=== PATIENT | female | born 1965 | race Caucasian/White ===

== ENCOUNTER 2017-10-16 15:26 | Inpatient (IN) | payer OTHER ==
[~2017-10-16] VITALS: Ht 157.5 cm; Wt 116.1 kg
[2017-10-16] MEDS: ALBUTEROL SULF 0.083% NEB SOLN 3 ML NEB NEB SCH ×2 (00:45→19:55)
--- OUTSIDE RECORDS SUMMARY | 2017-10-16 15:29 | XMS REPORT ---
Author Author [facility] Address Unknown Phone Unavailable Care Team Providers Care Product Manager [employer] Name Role Phone YRN PARKS Unavailable Unavailable Problems This patient has no known problems. Allergies, Adverse Reactions, Alerts This patient has no known allergies or adverse reactions. Medications This patient has no known medications. Results Test Description Test Time Test Comments Text Results Atomic Results Result Comments MAMMOGRAPHY DIGITAL SCR BILAT [place] [address] Patient Name: RA KELSEY MR #: [id number] : 1965 Age/Sex: 51/F Req #: [id number] [facility] Physician: Ordered by: YRN PARKS MD Report #: [id number] Location: MAMMO Room/Bed: Procedure: [id number] MG/MAMMOGRAPHY DIGITAL SCR BILAT Exam Date: 05/21/17 Exam Time: 1705 REPORT STATUS: Signed # [id number] - MGSCRBIL #BILATERAL DIGITAL SCREENING MAMMOGRAM WITH CAD: CLINICAL: Routine screening. Comparison is made to exam dated: 05/18/2015 mammogram - [facility]. Current study contains 4 films. There are scattered fibroglandular elements in both breasts. Current study was also evaluated with a Computer Aided Detection ( CAD) system. There are benign calcifications in both breasts. There also is a benign asymmetric density in the left breast noted on the CC view that appears stable. No significant masses, calcifications, or other findings are seen in either breast. There has been no significant interval change. IMPRESSION: BENIGN There is no mammographic evidence of malignancy. A 1 year screening mammogram is recommended. The patient will be notified by letter of the results. Sanjiv Shahid Jr., D.O. cw/:2016 12:46:29 Synthetic Resin Operator: Helga RAY)(Kendy), [facility] letter sent: Compared to Prior B9 Mammogram BI- RADS: 2 Benign Dictated By: SANJIV SHAHID DO 1246 Transcribed By: KENROY on 05/25/17 1246 COPY TO: YRN PARKS MD
[2017-10-16] MEDS ORDERED: SODIUM CHLORIDE 0.9% 1000ML 1,000 ML IV STA (15:38)
[2017-10-16] MEDS ORDERED: METHYLPREDNISOLONE SOD SUCC 125 MG/2ML VIAL IV STA (15:38)
[2017-10-16] MEDS ORDERED: DIPHENHYDRAMINE HCL INJ 50 MG/ML VIAL IV ONE (15:45)
[2017-10-16 15:59] LABS: BASOPHILS # (AUTO) 0.1 (0.0-0.1); BASOPHILS % 0.7 % (0.0-1.0); EOSINOPHILS # (AUTO) 0.5 (0.0-0.4); EOSINOPHILS % 2.6 % (0.0-6.0); HEMATOCRIT 34.6 % (34.2-44.1); HEMOGLOBIN 11.2 g/dL (12.0-16.0); LYMPHOCYTES # (AUTO) 4.1 (1.0-3.2); LYMPHOCYTES % 23.1 % (18.0-39.1); MEAN CORPUSCULAR HEMOGLOBIN 28.6 pg (28-32); MEAN CORPUSCULAR HGB CONC 32.4 g/dL (31-35); MEAN CORPUSCULAR VOLUME 88.3 fL (81-99); MONOCYTES # (AUTO) 1.1 (0.2-0.8); MONOCYTES % 6.4 % (4.4-11.3); NEUTROPHILS # (AUTO) 11.9 (2.1-6.9); NEUTROPHILS % 66.6 % (38.7-80.0); PLATELET COUNT 494 x10e3/uL (140-360); RED BLOOD COUNT 3.92 x10e6/uL (3.6-5.1)
[2017-10-16 16:07] LABS: PARTIAL THROMBOPLASTIN TIME 26.3 seconds (23.8-35.5); PROTHROMBIN TIME 12.4 seconds (11.9-14.5)
[2017-10-16 16:14] LABS: ALANINE AMINOTRANSFERASE 18 IU/L (0-55); ALBUMIN 3.7 g/dL (3.5-5.0); ALBUMIN/GLOBULIN RATIO 0.9 (0.8-2.0); ALKALINE PHOSPHATASE 107 IU/L (40-150); ANION GAP 15.7 mmol/L (8-16); BLOOD UREA NITROGEN 10 mg/dL (7-26); BUN/CREATININE RATIO 14 (6-25); CALCIUM 9.8 mg/dL (8.4-10.2); CARBON DIOXIDE 27 mmol/L (22-29); CHLORIDE 100 mmol/L (98-107); CREATINE KINASE 59 IU/L (29-168); CREATININE, SERUM 0.72 mg/dL (0.57-1.11); EST GLOMERULAR FILTRATION RATE > 60 ML/MIN (60-); GLUCOSE 153 mg/dL (74-118); POTASSIUM 3.7 mmol/L (3.5-5.1); SODIUM 139 mmol/L (136-145)
[2017-10-16 16:55] LABS: BILIRUBIN,URINE NEGATIVE (NEGATIVE); CLARITY,URINE CLEAR (CLEAR); COLOR,URINE YELLOW (YELLOW); KETONES,URINE NEGATIVE (NEGATIVE); LEUKOCYTE ESTERASE ,URINE NEGATIVE (NEGATIVE); NITRITE,URINE NEGATIVE (NEGATIVE); PROTEIN,URINE DIPSTICK NEGATIVE (NEGATIVE); URINE UROBILINOGEN 0.2 mg/dL (0.2 - 1)
--- NOTE | 2017-10-16 17:07 | Diagnostic Imaging Report ---
EXAMINATION: CHEST 2 VIEWS INDICATION: \S\HEMPOTYSIS \S.br\ COMPARISON: None FINDINGS: PA and lateral views TUBES and LINES: None. LUNGS: Lungs are well inflated. Right middle lobe opacification. PLEURA: No pleural effusion or pneumothorax. HEART AND MEDIASTINUM: The cardiomediastinal silhouette is unremarkable. BONES AND SOFT TISSUES: No acute osseous lesion. Soft tissues are unremarkable. UPPER ABDOMEN: No free air under the diaphragm. IMPRESSION: Lateral right middle lobe opacification, concerning for pneumonia. Signed by: Dr. Home Ferrell MD on 10/16/2017 5:03 PM
[2017-10-16] MEDS ORDERED: CEFTRIAXONE SOD 1 GM VIAL IV ONE (17:30)
[2017-10-16] MEDS ORDERED: GLIMEPIRIDE2 MG PO (18:15)
[2017-10-16] MEDS ORDERED: DETROL LA4 MG PO (18:15)
[2017-10-16] MEDS ORDERED: METFORMIN HCL500 MG PO (18:15)
[2017-10-16] MEDS ORDERED: VENTOLIN HFA18 GM (18:15)
[2017-10-16] MEDS ORDERED: SERTRALINE HCL50 MG PO (18:15)
[2017-10-16] MEDS ORDERED: ACETAMINOPHEN 325 MG TAB PO PRN (18:15)
[2017-10-16] MEDS ORDERED: LISINOPRIL10 MG PO (18:15)
[2017-10-16] MEDS ORDERED: TRAZODONE HCL50 MG PO (18:15)
[2017-10-16] MEDS ORDERED: DEXTROSE 50% SYRINGE 50 ML IV PRN (18:15)
[2017-10-16] MEDS ORDERED: LIPITOR20 MG (18:15)
[2017-10-16] MEDS ORDERED: AZITHROMYCIN 500MG/SOD CHL 0.9% 250ML BAG IV SCH (18:30)
[2017-10-16] MEDS: NICOTINE 7 MG PATCH TOP SCH (18:57)
[2017-10-16] MEDS: SODIUM CHLORIDE 0.9% 1000ML 1,000 ML IV SCH ×2 (18:57→22:30)
[2017-10-16] MEDS: AZITHROMYCIN 500MG/NS 250 ML 250 ML IV SCH (18:57)
[2017-10-16] MEDS ORDERED: AZITHROMYCIN 500MG/NS 250 ML 250 ML IV ONE (19:00)
[2017-10-16] MEDS: ALBUTEROL/IPRATROPIUM 3 ML NEB NEB SCH (19:55)
[2017-10-16 20:15] VITALS: BP 155/77
[2017-10-16] MEDS: INSULIN LISPRO 100 UNIT/1 ML 3ML VIAL SQ SCH (21:00)
[2017-10-16] MEDS: ATORVASTATIN 20 MG TAB PO SCH (21:03)
[2017-10-16] MEDS: TRAZODONE HCL 50 MG TAB PO SCH (21:03)
--- NOTE | 2017-10-16 22:33 | History and Physical ---
CHIEF COMPLAINT 1. Cough. 2. Shortness of breath. 3. Weakness starting 2 days. HPI: This is a 51-year-old female with a past medical history of hypertension, nicotine dependency, hyperlipidemia, diabetes mellitus, mild COPD, was in his usual state of health until patient was sick last 2 to 3 days. Was coughing mucus with blood in the mucus this morning. Increase in shortness of breath, fatigue and weakness. No leg pain, no leg swelling. No abdominal pain. No nausea or vomiting. No hematemesis, no melena. No burning on urination. No backache. No seizures. No headache. PAST MEDICAL HISTORY 1. Diabetes mellitus type 2. 2. Hypertension. 3. Hyperlipidemia. 4. Nicotine dependency. PAST SURGICAL HISTORY 1. History of hysterectomy. 2. Appendectomy. 3. Right hand surgery. SOCIAL HISTORY: Patient is , lives with family. Smoking cigarette, cut down a lot, only 5 cigarettes per day now. Used to smoke 1 pack of cigarette daily. Occasional alcohol use. No illicit drug use. FAMILY HISTORY: Noncontributory. ALLERGIES: ALLERGY TO SHELLFISH. MEDICATION LIST: Attached. REVIEW OF SYSTEMS: GENERAL: Generalized fatigue and weakness. HEENT: No diplopia. No blurring of vision. CARDIOPULMONARY: No chest pain, but has shortness of breath, cough, and hemoptysis. ALIMENTARY SYSTEM: No nausea or vomiting. No diarrhea or constipation. GENITOURINARY SYSTEM: No dysuria or hematuria. MUSCULOSKELETAL SYSTEM: Has some joint pain. CENTRAL NERVOUS SYSTEM: No focal weakness. No seizures. PHYSICAL EXAMINATION GENERAL: A 51-year-old female who is alert and oriented times 3, mild respiratory distress. VITAL SIGNS: Temperature 98.3, pulse 98, respiratory rate 20, and blood pressure 141/63. HEENT: Head atraumatic, normocephalic. Pupils are bilaterally equal and reactive to light. Extraocular muscles intact. NECK: Supple. No JVD, no carotid bruit. LUNGS: Air entry fair. Decreased breath sounds on the right side. HEART: S1 and S2. Regular rate and rhythm. No S3, no S4. No murmur. ABDOMEN: Soft and nontender. No guarding. No rigidity. EXTREMITIES: No pedal edema. Peripheral pulses +1. ELECTRIC RANGE SERVICER: Grossly nonfocal. Chest x-ray shows right middle lobe infiltrate. Urine normal. Chemistry: Sugar 153. BNP normal. Cardiac enzymes normal. normal. CBC: White count 17.79, hemoglobin 112, hematocrit 34.6, and platelets 494,000. ASSESSMENT 1. Right lower lobe pneumonia. 2. Rule out chronic obstructive pulmonary disease. 3. History of smoking cigarette, on Chantix. 4. Hypertension. 5. Diabetes mellitus type 2. 6. Hyperlipidemia. PLAN 1. Admit to telemetry. 2. Neb treatment, DuoNeb q.6 h. 3. IV Rocephin 2 g daily. 4. IV Zithromax 500 IV daily. 5. Continue home medicines. 6. Blood sugar checkup a.c. and nightly. 7. Pulmonary consult, Dr. Coronado. Case discussed with daughter, family, and patient. Told condition and prognosis, explained plan of care. Job#: [id number]
[2017-10-17] VITALS (7 sets, daily range): BP systolic 112–155; BP diastolic 59–77
[2017-10-17] MEDS: ALBUTEROL/IPRATROPIUM 3 ML NEB NEB SCH ×4 (00:45→19:00)
[2017-10-17] MEDS: IPRATROPIUM BROMIDE 0.02% 2.5 ML NEB NEB SCH ×5 (01:00→23:30)
[2017-10-17] MEDS: ALBUTEROL SULF 0.083% NEB SOLN 3 ML NEB NEB SCH ×6 (03:00→23:30)
[2017-10-17] MEDS: SODIUM CHLORIDE 0.9% 1000ML 1,000 ML IV SCH ×2 (06:06→19:00)
[2017-10-17] MEDS: PANTOPRAZOLE SOD 40 MG TABEC PO SCH (07:30)
[2017-10-17] MEDS: INSULIN LISPRO 100 UNIT/1 ML 3ML VIAL SQ SCH ×4 (07:30→21:41)
[2017-10-17] MEDS: METFORMIN HCL 500 MG TAB PO SCH ×2 (08:00→17:00)
[2017-10-17] MEDS: GLIMEPIRIDE 2 MG TAB PO SCH ×2 (08:00→17:00)
[2017-10-17 08:15] LABS: BASOPHILS % 0.3 % (0.0-1.0); EOSINOPHILS % 0.1 % (0.0-6.0); HEMOGLOBIN 10.3 g/dL (12.0-16.0); LYMPHOCYTES # (AUTO) 2.2 (1.0-3.2); LYMPHOCYTES % 13.9 % (18.0-39.1); MEAN CORPUSCULAR HEMOGLOBIN 28.5 pg (28-32); MEAN CORPUSCULAR HGB CONC 32.2 g/dL (31-35); MEAN CORPUSCULAR VOLUME 88.6 fL (81-99); MONOCYTES % 6.1 % (4.4-11.3); NEUTROPHILS # (AUTO) 12.5 (2.1-6.9); NEUTROPHILS % 78.7 % (38.7-80.0); PLATELET COUNT 426 x10e3/uL (140-360); RED BLOOD COUNT 3.61 x10e6/uL (3.6-5.1)
[2017-10-17 08:33] LABS: ANION GAP 15.9 mmol/L (8-16); BLOOD UREA NITROGEN 11 mg/dL (7-26); BUN/CREATININE RATIO 15 (6-25); CALCIUM 9.6 mg/dL (8.4-10.2); CARBON DIOXIDE 21 mmol/L (22-29); CHLORIDE 106 mmol/L (98-107); CREATININE, SERUM 0.75 mg/dL (0.57-1.11); EST GLOMERULAR FILTRATION RATE > 60 ML/MIN (60-); GLUCOSE 301 mg/dL (74-118); POTASSIUM 3.9 mmol/L (3.5-5.1); SODIUM 139 mmol/L (136-145)
[2017-10-17] MEDS: SERTRALINE HCL 50 MG TAB PO SCH (09:00)
[2017-10-17] MEDS: LISINOPRIL 20 MG TAB PO SCH (09:00)
[2017-10-17] MEDS: CEFTRIAXONE SOD 1 GM VIAL IV SCH (09:00)
[2017-10-17] MEDS: TOLTERODINE TARTRATE 4 MG CAPCR PO SCH (09:00)
--- NOTE | 2017-10-17 14:41 | Diagnostic Imaging Report ---
EXAM: CT Chest WITHOUT contrast 10/17/2017 1:30 PM INDICATION: Dyspnea. Right lower lobe pneumonia. COMPARISON: None. Correlation with chest radiograph dated 10/16/2017. TECHNIQUE: Chest was scanned utilizing a multidetector helical scanner from the lung apex through the level of the adrenal glands without administration of IV contrast. Absence of intravenous contrast decreases sensitivity for detection of lymphadenopathy and vascular pathology. Coronal and sagittal reformations were obtained. Routine protocol was performed. IV CONTRAST: None RADIATION DOSE: Total DLP: 563.77 mGy*cm Estimated effective dose: (DLP x 0.014 x size factor) mSv COMPLICATIONS: None FINDINGS: LINES/ TUBES: None. LUNGS AND AIRWAYS: Right middle lobe consolidation with air bronchograms. 1.0 cm noncalcified nodule in the right middle lobe medial to the consolidation on image 31. Lingular subsegmental atelectasis. Mild patchy groundglass density in the left lower lobe anteriorly on image 19, in the left upper lobe medially on image 15, and right apex anteriorly on image 8 series 3. Patchy groundglass density in the right lower lobe on image 37 series 3. Minimal biapical emphysematous changes. PLEURA: The pleural spaces are clear. HEART AND MEDIASTINUM: The thyroid gland is normal. No mediastinal, hilar or axillary lymphadenopathy. The heart is normal in size.. There is no pericardial effusion. Atherosclerotic calcifications of the thoracic aorta without aneurysmal dilatation. Calcification of distal LAD. UPPER ABDOMEN: Limited non-contrast views of the upper abdomen show hepatic steatosis.. The adrenal glands are normal. BONES: No acute osseous abnormality. SOFT TISSUES: Unremarkable. IMPRESSION: 1. Right middle lobe consolidation may be infectious in etiology in the proper setting. Recommend follow-up after treatment to document complete resolution and exclude post obstructive pneumonia and underlying neoplasm (a rounded abnormality was present on CXR from 05/2015). Given hemoptysis, consider pulmonary consultation for possible bronchoscopic evaluation. 2. 1.0 cm right middle lobe nodule in the also be reevaluated at time of future follow up. Signed by: Dr. Sanam Gaines M.D. on 10/17/2017 2:38 PM
--- NOTE | 2017-10-17 16:14 | Consultation ---
DATE OF CONSULTATION: October 17, 2017 PULMONARY CONSULTATION PATIENT OF: Dr. Olegario Raymond. HISTORY OF PRESENT ILLNESS: Unfortunate 51-year-old woman admitted with shortness of breath, cough, and fatigue. History of blood sputum in August and again this current illness. She was short of breath the morning of October 16 and was admitted. She is allergic to SHELLFISH. She is diabetic and hypertensive. Her medications include albuterol, Lipitor, Gena, lisinopril, metformin, Zoloft, Detrol, and trazodone. She has had appendectomy, hysterectomy, and hand surgery. Works in a clerical position. Smoked a pack and a half a day for 30 years, quit with Chantix. FAMILY HISTORY: Positive for COPD and throat cancer in father. Diabetes and hypertension in mother. She was born in [place]. PHYSICAL EXAMINATION GENERAL: This is a well-developed white female, in no acute distress, anxious. VITALS: Temperature 96.8, pulse 89, blood pressure 112/70, and respirations 18. HEENT: There is bloody sputum. Head is normocephalic, atraumatic. NECK: Trachea is midline. LUNGS: Rhonchi right anteriorly. HEART: Regular rhythm. ABDOMEN: Nontender. EXTREMITIES: Not edematous. IMPRESSION AND RECOMMENDATIONS: Right middle lobe pneumonia, suspicious for bronchial obstruction, particularly in view of hemoptysis and smoking history. We will request CT chest and bronchoscopy. It was discussed with the patient. She will consider this. Cigarette smoking cessation was discussed. Thank you for this kind referral. Job#: [id number] MICHAEL
[2017-10-17] MEDS ORDERED: CEFTRIAXONE SOD 1 GM VIAL IV SCH (18:00)
[2017-10-17] MEDS: NICOTINE 7 MG PATCH TOP SCH (18:06)
[2017-10-17] MEDS: AZITHROMYCIN 500MG/NS 250 ML 250 ML IV SCH (20:00)
[2017-10-17] MEDS: ATORVASTATIN 20 MG TAB PO SCH (21:41)
[2017-10-17] MEDS: TRAZODONE HCL 50 MG TAB PO SCH (21:41)
[2017-10-18] VITALS (8 sets, daily range): BP systolic 124–161; BP diastolic 69–80
[2017-10-18] MEDS: ALBUTEROL/IPRATROPIUM 3 ML NEB NEB SCH ×2 (01:00→13:00)
[2017-10-18] MEDS: ALBUTEROL SULF 0.083% NEB SOLN 3 ML NEB NEB SCH ×2 (03:45→07:00)
[2017-10-18 06:06] LABS: BASOPHILS # (AUTO) 0.1 (0.0-0.1); BASOPHILS % 0.4 % (0.0-1.0); EOSINOPHILS # (AUTO) 0.4 (0.0-0.4); EOSINOPHILS % 3.5 % (0.0-6.0); HEMATOCRIT 30.1 % (34.2-44.1); HEMOGLOBIN 9.6 g/dL (12.0-16.0); LYMPHOCYTES % 24.7 % (18.0-39.1); MEAN CORPUSCULAR HEMOGLOBIN 28.3 pg (28-32); MEAN CORPUSCULAR HGB CONC 31.9 g/dL (31-35); MEAN CORPUSCULAR VOLUME 88.8 fL (81-99); MONOCYTES # (AUTO) 0.8 (0.2-0.8); MONOCYTES % 6.6 % (4.4-11.3); NEUTROPHILS # (AUTO) 7.8 (2.1-6.9); NEUTROPHILS % 64.3 % (38.7-80.0); PLATELET COUNT 382 x10e3/uL (140-360); RED BLOOD COUNT 3.39 x10e6/uL (3.6-5.1); RED CELL DISTRIBUTION WIDTH 13.2 % (11.7-14.4)
[2017-10-18 06:25] LABS: ANION GAP 11.8 mmol/L (8-16); BLOOD UREA NITROGEN 9 mg/dL (7-26); BUN/CREATININE RATIO 13 (6-25); CALCIUM 8.2 mg/dL (8.4-10.2); CARBON DIOXIDE 24 mmol/L (22-29); CHLORIDE 111 mmol/L (98-107); CREATININE, SERUM 0.68 mg/dL (0.57-1.11); EST GLOMERULAR FILTRATION RATE > 60 ML/MIN (60-); GLUCOSE 217 mg/dL (74-118); POTASSIUM 3.8 mmol/L (3.5-5.1); SODIUM 143 mmol/L (136-145)
[2017-10-18] MEDS: IPRATROPIUM BROMIDE 0.02% 2.5 ML NEB NEB SCH (07:00)
[2017-10-18] MEDS: PANTOPRAZOLE SOD 40 MG TABEC PO SCH (08:23)
[2017-10-18] MEDS: INSULIN LISPRO 100 UNIT/1 ML 3ML VIAL SQ SCH ×4 (08:23→21:11)
[2017-10-18] MEDS: TOLTERODINE TARTRATE 4 MG CAPCR PO SCH (08:23)
[2017-10-18] MEDS: GLIMEPIRIDE 2 MG TAB PO SCH ×2 (08:23→16:06)
[2017-10-18] MEDS: METFORMIN HCL 500 MG TAB PO SCH (08:23)
[2017-10-18] MEDS: CEFTRIAXONE SOD 1 GM VIAL IV SCH (08:23)
[2017-10-18] MEDS: SERTRALINE HCL 50 MG TAB PO SCH (08:24)
[2017-10-18] MEDS: LISINOPRIL 20 MG TAB PO SCH (08:24)
[2017-10-18] MEDS: SODIUM CHLORIDE 0.9% 1000ML 1,000 ML IV SCH (11:56)
[2017-10-18] MEDS: NICOTINE 7 MG PATCH TOP SCH (16:06)
[2017-10-18] MEDS: AZITHROMYCIN 500MG/NS 250 ML 250 ML IV SCH (20:32)
[2017-10-18] MEDS: ATORVASTATIN 20 MG TAB PO SCH (20:36)
[2017-10-18] MEDS ORDERED: LOPERAMIDE HCL 2 MG CAP PO PRN (20:45)
[2017-10-18] MEDS ORDERED: ALBUTEROL/IPRATROPIUM 3 ML NEB NEB PRN (21:00)
[2017-10-18] MEDS: TRAZODONE HCL 50 MG TAB PO SCH (21:08)
[2017-10-19] VITALS (7 sets, daily range): BP systolic 105–143; BP diastolic 56–92
[2017-10-19] MEDS: SODIUM CHLORIDE 0.9% 1000ML 1,000 ML IV SCH ×2 (00:45→15:35)
[2017-10-19] MEDS: ALBUTEROL/IPRATROPIUM 3 ML NEB NEB SCH ×4 (01:02→20:05)
[2017-10-19 05:55] LABS: BASOPHILS # (AUTO) 0.1 (0.0-0.1); EOSINOPHILS # (AUTO) 0.5 (0.0-0.4); HEMATOCRIT 30.6 % (34.2-44.1); HEMOGLOBIN 9.6 g/dL (12.0-16.0); LYMPHOCYTES # (AUTO) 3.2 (1.0-3.2); LYMPHOCYTES % 30.5 % (18.0-39.1); MEAN CORPUSCULAR HEMOGLOBIN 28.4 pg (28-32); MEAN CORPUSCULAR HGB CONC 31.4 g/dL (31-35); MEAN CORPUSCULAR VOLUME 90.5 fL (81-99); MONOCYTES # (AUTO) 0.8 (0.2-0.8); MONOCYTES % 8.1 % (4.4-11.3); NEUTROPHILS # (AUTO) 5.7 (2.1-6.9); PLATELET COUNT 393 x10e3/uL (140-360); RED BLOOD COUNT 3.38 x10e6/uL (3.6-5.1); RED CELL DISTRIBUTION WIDTH 13.4 % (11.7-14.4); RETICULOCYTE % 1.5 % (0.8-2.2)
[2017-10-19 06:11] LABS: % IRON SATURATION 8 % (15-50); ALANINE AMINOTRANSFERASE 17 IU/L (0-55); ALBUMIN 2.8 g/dL (3.5-5.0); ALBUMIN/GLOBULIN RATIO 0.9 (0.8-2.0); ALKALINE PHOSPHATASE 80 IU/L (40-150); ANION GAP 11.8 mmol/L (8-16); BLOOD UREA NITROGEN 10 mg/dL (7-26); BUN/CREATININE RATIO 16 (6-25); CALCIUM 8.3 mg/dL (8.4-10.2); CARBON DIOXIDE 24 mmol/L (22-29); CHLORIDE 109 mmol/L (98-107); CREATININE, SERUM 0.63 mg/dL (0.57-1.11); EST GLOMERULAR FILTRATION RATE > 60 ML/MIN (60-); GLUCOSE 200 mg/dL (74-118); IRON 20 ug/dL (50-170); POTASSIUM 3.8 mmol/L (3.5-5.1); SODIUM 141 mmol/L (136-145); TOTAL IRON BINDING CAPACITY 251 ug/dL (261-478); TRANSFERRIN 179 mg/dL (180-382)
[2017-10-19 06:33] LABS: FERRITIN 97.04 ng/mL (4.63-204.00)
[2017-10-19] MEDS: PANTOPRAZOLE SOD 40 MG TABEC PO SCH (07:30)
[2017-10-19] MEDS: INSULIN LISPRO 100 UNIT/1 ML 3ML VIAL SQ SCH ×4 (07:30→20:50)
[2017-10-19] MEDS: GLIMEPIRIDE 2 MG TAB PO SCH ×2 (08:00→17:58)
[2017-10-19] MEDS: IRON-VITAMIN-MINERAL CAPSULE PO SCH (09:00)
[2017-10-19] MEDS: TOLTERODINE TARTRATE 4 MG CAPCR PO SCH (09:24)
[2017-10-19] MEDS: CEFTRIAXONE SOD 2 GM VIAL IV SCH (09:24)
[2017-10-19] MEDS: LISINOPRIL 20 MG TAB PO SCH (09:25)
--- NOTE | 2017-10-19 10:39 | Diagnostic Imaging Report ---
PROCEDURE:ABDOMINAL ULTRASOUND COMPARISON:None. INDICATIONS:Acute Anemia TECHNIQUE:Grayscale and color Doppler ultrasound FINDINGS: Imaged portions of the inferior vena cava and abdominal aorta are unremarkable. Normal pancreatic head and proximal body. The tail is obscured by bowel gas. Right liver span 18.6 cm. Coarsened echotexture and echogenicity with a smooth margin. Portal vein diameter 1.3 cm; normal flutter action. Small volume gallbladder sludge without calcified stones. Wall thickness 3 mm. Common bile duct diameter 4 mm. No Barry's sign. Right kidney: 13.5 x 5.4 x 6.6 cm Left kidney: 12.1 x 6 x 5.3 cm Both kidneys are normal. Spleen length is 9.7 cm. No ascites. CONCLUSION: 1. No conspicuous etiology for acute anemia. 2. Hepatomegaly with steatosis. Prominent portal vein suggesting developing portal hypertension. Dictated by: Gigi Gibbons M.D. on 10/19/2017 at 10:39 Electronically approved by: Gigi Gibbons M.D. on 10/19/2017 at 10:39
[2017-10-19] MEDS ORDERED: LIDOCAINE HCL 2% 30 ML TUBE ONE (12:49)
[2017-10-19] MEDS ORDERED: LIDOCAINE HCL 4% 50 ML BTL ONE (12:49)
[2017-10-19] MEDS ORDERED: OXYMETAZOLINE HCL 0.05% NAS 1 SPRAY BTL ONE (12:50)
[2017-10-19] MEDS ORDERED: EPINEPHRINE HCL INJ 1 MG/ML AMP ONE (12:50)
--- NOTE | 2017-10-19 14:28 | Operative Report ---
DATE OF PROCEDURE: October 19, 2017 This is a patient of Dr. Steven Raymond. Patient with hemoptysis and right middle lobe infiltrate. The patient has been bleeding on and off since August. She is a heavy smoker. Bronchoscopy was performed to exclude occult endobronchial lesion. MAC anesthesia provided by Dr. Herman. She was bronchoscoped through a #5 LMA. Tube was in good position. Old blood was noted at the posterior commissure of the larynx. This was suctioned clear. Copious amount of serosanguineous bloody fluid was noted bilaterally, but no particular bleeding point was encountered. Washings were obtained from the right middle lobe bronchus. Brushings were also obtained. The patient tolerated the procedure well. There was no obvious tumor. Following lavage, there was no evidence of bleeding. The patient was taken to the recovery area. Job#: [id number]
[2017-10-19] MEDS ORDERED: ACETAMINOPHEN 1000 MG/100 ML IV ONE (14:40)
[2017-10-19] MEDS ORDERED: MIDAZOLAM HCL 2 MG/2 ML VIAL ONE (17:48)
[2017-10-19] MEDS ORDERED: FENTANYL CITRATE/PF 100MCG/2 ML INJ ONE (17:48)
[2017-10-19] MEDS: NICOTINE 7 MG PATCH TOP SCH (17:58)
[2017-10-19] MEDS ORDERED: SEVOFLURANE INHAL SOLN 250 ML PEN BTL ONE (18:19)
[2017-10-19] MEDS ORDERED: LIDOCAINE HCL 2% LOCAL INJ 5 ML SDV VIAL INJ ONE (18:19)
[2017-10-19] MEDS ORDERED: PROPOFOL IV EMULSION 10 MG/ML 20 ML VIAL ONE (18:19)
[2017-10-19] MEDS ORDERED: ALBUTEROL/IPRATROPIUM 3 ML NEB NEB PRN (19:00)
[2017-10-19] MEDS: ATORVASTATIN 20 MG TAB PO SCH (20:50)
[2017-10-19] MEDS: AZITHROMYCIN 500MG/NS 250 ML 250 ML IV SCH (20:50)
[2017-10-19] MEDS: TRAZODONE HCL 50 MG TAB PO SCH (20:50)
[2017-10-19] MEDS: SERTRALINE HCL 50 MG TAB PO SCH (21:15)
[2017-10-20] VITALS (8 sets, daily range): BP systolic 106–176; BP diastolic 57–83
[2017-10-20] MEDS ORDERED: ALBUTEROL/IPRATROPIUM 3 ML NEB NEB PRN (01:00)
[2017-10-20] MEDS: ALBUTEROL/IPRATROPIUM 3 ML NEB NEB SCH ×5 (01:30→19:50)
[2017-10-20] MEDS: SODIUM CHLORIDE 0.9% 1000ML 1,000 ML IV SCH (03:07)
[2017-10-20 06:03] LABS: BASOPHILS # (AUTO) 0.1 (0.0-0.1); BASOPHILS % 0.6 % (0.0-1.0); EOSINOPHILS # (AUTO) 0.5 (0.0-0.4); HEMATOCRIT 28.5 % (34.2-44.1); LYMPHOCYTES # (AUTO) 2.8 (1.0-3.2); LYMPHOCYTES % 30.1 % (18.0-39.1); MEAN CORPUSCULAR HEMOGLOBIN 28.4 pg (28-32); MEAN CORPUSCULAR HGB CONC 31.6 g/dL (31-35); MEAN CORPUSCULAR VOLUME 89.9 fL (81-99); MONOCYTES # (AUTO) 0.6 (0.2-0.8); MONOCYTES % 6.8 % (4.4-11.3); NEUTROPHILS # (AUTO) 5.4 (2.1-6.9); NEUTROPHILS % 57.2 % (38.7-80.0); PLATELET COUNT 356 x10e3/uL (140-360); RED BLOOD COUNT 3.17 x10e6/uL (3.6-5.1); RED CELL DISTRIBUTION WIDTH 13.3 % (11.7-14.4)
[2017-10-20 06:28] LABS: ALANINE AMINOTRANSFERASE 15 IU/L (0-55); ALBUMIN 2.8 g/dL (3.5-5.0); ALBUMIN/GLOBULIN RATIO 1.1 (0.8-2.0); ALKALINE PHOSPHATASE 79 IU/L (40-150); ANION GAP 11.7 mmol/L (8-16); BLOOD UREA NITROGEN 9 mg/dL (7-26); BUN/CREATININE RATIO 14 (6-25); CALCIUM 8.3 mg/dL (8.4-10.2); CARBON DIOXIDE 27 mmol/L (22-29); CHLORIDE 109 mmol/L (98-107); CREATININE, SERUM 0.65 mg/dL (0.57-1.11); EST GLOMERULAR FILTRATION RATE > 60 ML/MIN (60-); GLUCOSE 216 mg/dL (74-118); POTASSIUM 3.7 mmol/L (3.5-5.1); SODIUM 144 mmol/L (136-145)
[2017-10-20] MEDS: PANTOPRAZOLE SOD 40 MG TABEC PO SCH (07:30)
[2017-10-20] MEDS: INSULIN LISPRO 100 UNIT/1 ML 3ML VIAL SQ SCH ×4 (07:30→21:20)
[2017-10-20] MEDS: GLIMEPIRIDE 2 MG TAB PO SCH ×2 (08:25→17:04)
[2017-10-20] MEDS: IRON-VITAMIN-MINERAL CAPSULE PO SCH (08:47)
[2017-10-20] MEDS: CEFTRIAXONE SOD 2 GM VIAL IV SCH (08:47)
[2017-10-20] MEDS: LISINOPRIL 20 MG TAB PO SCH (08:47)
[2017-10-20] MEDS: SERTRALINE HCL 50 MG TAB PO SCH (08:47)
[2017-10-20] MEDS: TOLTERODINE TARTRATE 4 MG CAPCR PO SCH (08:47)
[2017-10-20] MEDS: IRON SUCROSE 100 MG in SODIUM CHLORIDE 0.9% 100 ML 100 ML IV SCH (11:08)
--- NOTE | 2017-10-20 11:24 | Consultation ---
DATE OF CONSULTATION: October 20, 2017 CHIEF COMPLAINT: Shortness of breath, cough, and weakness. HISTORY OF PRESENT ILLNESS: Patient is a 61-year-old female with a past medical history of diabetes mellitus, nicotine dependence, hypertension, hyperlipidemia, who presented to the emergency department on October 16, 2017, with episodes of hemoptysis and shortness of breath that started 2 to 3 days ago. Patient was coughing mucus with blood in the morning of, and she was also experiencing fatigue and weakness, but denies any hematemesis, melena, or hematochezia. She denies any nausea or vomiting, diarrhea, or constipation. Patient has had several EGDs and colonoscopies with Dr. Odom greater than 10 years ago due to history of polyps, but has not had one since. She denies any chest pain, fevers, chills, or hematuria. PAST MEDICAL HISTORY 1. Diabetes mellitus type 2. 2. Hyperlipidemia. 3. Hypertension. 4. Nicotine dependency. PAST SURGICAL HISTORY 1. Appendectomy. 2. Hysterectomy. 3. Right hand surgery. SOCIAL HISTORY: Patient smokes about 4 cigarettes per day. Denies any alcohol use. Denies any recreational drug use. FAMILY HISTORY: Hypertension. ALLERGIES: SHE IS ALLERGIC TO SHELLFISH. MEDICATION LIST: See attached. REVIEW OF SYSTEMS GENERAL: Generalized weakness and fatigue. Is improving. HEENT: No blurring of vision. No diplopia. No eye pain. CARDIOPULMONARY: Shortness of breath, improving. Cough and hemoptysis, improving. Denies any chest pain. GASTROINTESTINAL: No nausea/vomiting. No constipation. No diarrhea. No hematochezia. No melena. GENITOURINARY: No hematuria. No dysuria. MUSCULOSKELETAL: No joint pain. No swelling. CENTRAL NERVOUS SYSTEM: No seizures. No focal weakness. PHYSICAL EXAMINATION GENERAL: Alert and oriented x3. VITAL SIGNS: Please see chart. HEENT: Atraumatic. Anicteric. EOM intact. NECK: Supple. Full range of motion. LUNGS: Decreased breath sounds on right side. No rhonchi. HEART: Regular rate and rhythm. No murmurs. ABDOMEN: No guarding, no rigidity. Nontender. Soft. Active bowel sounds. EXTREMITIES: No pedal edema. CENTRAL NERVOUS SYSTEM: Grossly nonfocal. IMAGING: Chest x-ray showed right middle lobe infiltrate. Fluoroscopy was done. Cardiac enzymes were normal. Hemoglobin is currently 9.0. Ultrasound showed fatty liver with no common bile duct dilation, no inflammation. IMPRESSION 1. Anemia--rule out gastrointestinal bleed. 2. History of polyps. 3. Nonalcoholic steatohepatitis, fatty liver, as seen on ultrasound. 4. Right lower lobe pneumonia. 5. Diabetes mellitus. 6. History of cigarette smoking. PLAN 1. At this time, patient is not warranted for EGD, as there are no overt signs of bleeding. 2. Patient is to follow up outpatient with Dr. Quintanilla for EGD/colonoscopy. 3. Lifestyle modifications as discussed with patient. 4. Smoking cessation. 5. Supportive care. 6. IV iron infusion. Thank you for consulting us. We will follow. This was discussed with family at bedside, as well as Dr. Quintanilla. Dictated by Leeann Enriquez PA-C Job#: [id number] [place]
[2017-10-20] MEDS: METFORMIN HCL 500 MG TAB PO SCH (17:21)
[2017-10-20] MEDS: NICOTINE 7 MG PATCH TOP SCH (18:32)
[2017-10-20] MEDS: AZITHROMYCIN 500MG/NS 250 ML 250 ML IV SCH (18:33)
[2017-10-20] MEDS: TRAZODONE HCL 50 MG TAB PO SCH (21:19)
[2017-10-20] MEDS: ATORVASTATIN 10 MG TAB PO SCH (21:19)
[2017-10-21 00:48] VITALS: BP 128/69
[2017-10-21] MEDS: SODIUM CHLORIDE 0.9% 1000ML 1,000 ML IV SCH ×3 (01:11→23:42)
[2017-10-21 05:06] VITALS: BP 126/79
[2017-10-21 06:29] LABS: BASOPHILS # (AUTO) 0.1 (0.0-0.1); BASOPHILS % 0.6 % (0.0-1.0); EOSINOPHILS # (AUTO) 0.5 (0.0-0.4); EOSINOPHILS % 4.6 % (0.0-6.0); HEMATOCRIT 27.1 % (34.2-44.1); HEMOGLOBIN 8.7 g/dL (12.0-16.0); LYMPHOCYTES # (AUTO) 2.8 (1.0-3.2); LYMPHOCYTES % 24.3 % (18.0-39.1); MEAN CORPUSCULAR HEMOGLOBIN 28.3 pg (28-32); MEAN CORPUSCULAR HGB CONC 32.1 g/dL (31-35); MEAN CORPUSCULAR VOLUME 88.3 fL (81-99); MONOCYTES # (AUTO) 0.9 (0.2-0.8); NEUTROPHILS % 62.1 % (38.7-80.0); PLATELET COUNT 372 x10e3/uL (140-360); RED BLOOD COUNT 3.07 x10e6/uL (3.6-5.1); RED CELL DISTRIBUTION WIDTH 13.6 % (11.7-14.4)
[2017-10-21] MEDS: ALBUTEROL/IPRATROPIUM 3 ML NEB NEB SCH ×3 (07:00→20:15)
[2017-10-21 07:03] LABS: ALANINE AMINOTRANSFERASE 18 IU/L (0-55); ALBUMIN 2.9 g/dL (3.5-5.0); ALKALINE PHOSPHATASE 75 IU/L (40-150); ANION GAP 9.4 mmol/L (8-16); BLOOD UREA NITROGEN 6 mg/dL (7-26); BUN/CREATININE RATIO 10 (6-25); CALCIUM 8.2 mg/dL (8.4-10.2); CARBON DIOXIDE 26 mmol/L (22-29); CHLORIDE 111 mmol/L (98-107); CREATININE, SERUM 0.59 mg/dL (0.57-1.11); EST GLOMERULAR FILTRATION RATE > 60 ML/MIN (60-); GLUCOSE 188 mg/dL (74-118); LIPASE 13 U/L (8-78); POTASSIUM 3.4 mmol/L (3.5-5.1); SODIUM 143 mmol/L (136-145)
[2017-10-21] MEDS: INSULIN LISPRO 100 UNIT/1 ML 3ML VIAL SQ SCH ×4 (07:30→19:57)
[2017-10-21 07:59] VITALS: BP 158/68
[2017-10-21] MEDS: METFORMIN HCL 500 MG TAB PO SCH ×2 (08:15→17:17)
[2017-10-21] MEDS: PANTOPRAZOLE SOD 40 MG TABEC PO SCH (08:15)
[2017-10-21] MEDS: CEFTRIAXONE SOD 2 GM VIAL IV SCH (08:15)
[2017-10-21] MEDS: GLIMEPIRIDE 2 MG TAB PO SCH ×2 (08:15→17:17)
[2017-10-21] MEDS: TOLTERODINE TARTRATE 4 MG CAPCR PO SCH (08:15)
[2017-10-21] MEDS: SERTRALINE HCL 50 MG TAB PO SCH (08:16)
[2017-10-21] MEDS: LISINOPRIL 20 MG TAB PO SCH (08:16)
[2017-10-21] MEDS: IRON-VITAMIN-MINERAL CAPSULE PO SCH (08:31)
[2017-10-21] MEDS: IRON SUCROSE 100 MG in SODIUM CHLORIDE 0.9% 100 ML 100 ML IV SCH (10:23)
[2017-10-21 10:53] VITALS: BP 158/68
[2017-10-21 11:50] VITALS: BP 168/73
--- NOTE | 2017-10-21 13:26 | Diagnostic Imaging Report ---
EXAM: VENTILATION PERFUSION LUNG SCAN INDICATION: 51 F with dyspnea, pneumonia, hemoptysis and SOB x 1-2 weeks COMPARISON: CT chest 10/17/2017; chest radiograph 10/16/2017 DISCUSSION: Xenon-133 gas 9.3 mCi was administered via inhalation. The ventilation images are of suboptimal quality due to the patient not taking a deep breath hold at the beginning of the study. Dynamic images of the lungs in the posterior projection were obtained through single breath and washout phases. Distribution of tracer activity is relatively decreased in the right lung compared to the left. Tracer is irregular throughout the lungs. The images of the right lung do not allow for assessment of ventilatory defects. No ventilatory defects are seen in the left lung. Washout is normal without evidence of air trapping. Perfusion images of the lungs in multiple projections were obtained following intravenous administration of 6.6 mCi of Tc-99m MAA. Distribution of tracer is relatively decreased in the right lung compared to the left lung on both the anterior and posterior projections. No segmental perfusion defects are seen in the left lung although the tracer is irregularly distributed throughout the lung. A large segmental perfusion defect is seen in the base of the right lung and a moderate-sized segmental perfusion defect is seen in the posterior segment of the RUL. Two non-segmental perfusion defects are seen in the lower lobe. The cardiac silhouette is unremarkable. IMPRESSION: 1. Scan findings represent a VERY LOW probability for acute pulmonary embolic disease IN THE LEFT LUNG based on the PIOPED II criteria. Probability of acute pulmonary embolic disease IN THE RIGHT LUNG is INTERMEDIATE; this probability is assigned based on one large and one moderate-sized segmental perfusion defects in the right lung that appear to be unmatched. 2. Nonsegmental perfusion defects in the RLL are likely related to the patient's known acute pneumonia. There is concern for right pleural effusion and a comparison chest radiograph should be obtained as CT and chest radiograph available are 4 and 5 days old. Otherwise, partial obstruction of the right main stem bronchus should be considered as probable etiology of the relative decreased ventilatory and perfusion in the right lung compared to the left. Signed by: Dr. Helga Keen M.D. on 10/21/2017 1:22 PM
[2017-10-21] MEDS: AZITHROMYCIN 500MG/NS 250 ML 250 ML IV SCH (18:13)
[2017-10-21] MEDS: NICOTINE 7 MG PATCH TOP SCH (18:13)
[2017-10-21] MEDS: BENZONATATE 100 MG CAP PO PRN (19:19)
[2017-10-21] MEDS: GUAIFENESIN/DEXTROMETHORPHAN LIQD 5 ML UDC PO PRN (19:19)
[2017-10-21 20:06] VITALS: BP 163/75
[2017-10-21] MEDS: TRAZODONE HCL 50 MG TAB PO SCH (20:39)
[2017-10-21] MEDS: ATORVASTATIN 10 MG TAB PO SCH (20:40)
[2017-10-22] VITALS (9 sets, daily range): BP systolic 138–172; BP diastolic 58–80
[2017-10-22] MEDS: ALBUTEROL/IPRATROPIUM 3 ML NEB NEB SCH ×4 (01:05→19:15)
[2017-10-22] MEDS: GUAIFENESIN/DEXTROMETHORPHAN LIQD 5 ML UDC PO PRN ×3 (06:10→22:40)
[2017-10-22] MEDS: BENZONATATE 100 MG CAP PO PRN ×2 (06:10→14:45)
--- NOTE | 2017-10-22 06:24 | Diagnostic Imaging Report ---
CHEST SINGLE (PORTABLE), 10/22/2017 7:00 AM Technique: CHEST SINGLE (PORTABLE) Comparison: 10/16/2017 Clinical history: Follow-up Findings: See Impression Impression: 1. Increased right middle lobe consolidation compatible with pneumonia. Increased mild lingular atelectasis or infection. 2. Stable cardiomediastinal silhouette. No significant effusion. Signed by: Dr Pebbles Booth MD on 10/22/2017 6:21 AM
[2017-10-22 06:37] LABS: BASOPHILS # (AUTO) 0.1 (0.0-0.1); BASOPHILS % 0.7 % (0.0-1.0); EOSINOPHILS # (AUTO) 0.4 (0.0-0.4); EOSINOPHILS % 4.1 % (0.0-6.0); HEMATOCRIT 28.2 % (34.2-44.1); HEMOGLOBIN 8.9 g/dL (12.0-16.0); LYMPHOCYTES # (AUTO) 2.4 (1.0-3.2); LYMPHOCYTES % 22.7 % (18.0-39.1); MEAN CORPUSCULAR HEMOGLOBIN 28.5 pg (28-32); MEAN CORPUSCULAR HGB CONC 31.6 g/dL (31-35); MEAN CORPUSCULAR VOLUME 90.4 fL (81-99); MONOCYTES # (AUTO) 0.8 (0.2-0.8); MONOCYTES % 7.1 % (4.4-11.3); NEUTROPHILS # (AUTO) 6.9 (2.1-6.9); NEUTROPHILS % 64.8 % (38.7-80.0); PLATELET COUNT 366 x10e3/uL (140-360); RED BLOOD COUNT 3.12 x10e6/uL (3.6-5.1)
[2017-10-22 07:03] LABS: ALANINE AMINOTRANSFERASE 36 IU/L (0-55); ALBUMIN 3.1 g/dL (3.5-5.0); ALKALINE PHOSPHATASE 92 IU/L (40-150); ANION GAP 9.4 mmol/L (8-16); BLOOD UREA NITROGEN 6 mg/dL (7-26); BUN/CREATININE RATIO 9 (6-25); CALCIUM 8.6 mg/dL (8.4-10.2); CARBON DIOXIDE 26 mmol/L (22-29); CHLORIDE 109 mmol/L (98-107); CREATININE, SERUM 0.64 mg/dL (0.57-1.11); EST GLOMERULAR FILTRATION RATE > 60 ML/MIN (60-); GLUCOSE 202 mg/dL (74-118); POTASSIUM 3.4 mmol/L (3.5-5.1); SODIUM 141 mmol/L (136-145)
[2017-10-22] MEDS: METFORMIN HCL 500 MG TAB PO SCH ×2 (09:02→17:08)
[2017-10-22] MEDS: LISINOPRIL 20 MG TAB PO SCH (09:02)
[2017-10-22] MEDS: TOLTERODINE TARTRATE 4 MG CAPCR PO SCH (09:02)
[2017-10-22] MEDS: SERTRALINE HCL 50 MG TAB PO SCH (09:02)
[2017-10-22] MEDS: GLIMEPIRIDE 2 MG TAB PO SCH ×2 (09:02→17:08)
[2017-10-22] MEDS: PANTOPRAZOLE SOD 40 MG TABEC PO SCH (09:02)
[2017-10-22] MEDS: INSULIN LISPRO 100 UNIT/1 ML 3ML VIAL SQ SCH ×4 (09:02→21:00)
[2017-10-22] MEDS ORDERED: POTASSIUM CHLORIDE 10 MEQ TABCR PO NR (10:30)
[2017-10-22] MEDS: IRON-VITAMIN-MINERAL CAPSULE PO SCH (12:26)
[2017-10-22] MEDS: IRON SUCROSE 100 MG in SODIUM CHLORIDE 0.9% 100 ML 100 ML IV SCH (12:26)
[2017-10-22] MEDS: NICOTINE 7 MG PATCH TOP SCH (17:08)
[2017-10-22] MEDS: AZITHROMYCIN 500MG/NS 250 ML 250 ML IV SCH (22:30)
[2017-10-22] MEDS: TRAZODONE HCL 50 MG TAB PO SCH (22:30)
[2017-10-22] MEDS: ATORVASTATIN 10 MG TAB PO SCH (22:30)
[2017-10-23] VITALS: BP 117/54
[2017-10-23] MEDS: ALBUTEROL/IPRATROPIUM 3 ML NEB NEB SCH ×4 (02:20→23:45)
[2017-10-23 04:00] VITALS: BP 177/95
[2017-10-23 08:00] VITALS: BP 140/71
[2017-10-23 08:50] LABS: BASOPHILS # (AUTO) 0.1 (0.0-0.1); BASOPHILS % 0.6 % (0.0-1.0); EOSINOPHILS # (AUTO) 0.5 (0.0-0.4); EOSINOPHILS % 3.8 % (0.0-6.0); HEMOGLOBIN 8.6 g/dL (12.0-16.0); LYMPHOCYTES # (AUTO) 2.5 (1.0-3.2); LYMPHOCYTES % 20.3 % (18.0-39.1); MEAN CORPUSCULAR HEMOGLOBIN 28.5 pg (28-32); MEAN CORPUSCULAR HGB CONC 31.9 g/dL (31-35); MEAN CORPUSCULAR VOLUME 89.4 fL (81-99); MONOCYTES # (AUTO) 0.8 (0.2-0.8); MONOCYTES % 6.6 % (4.4-11.3); NEUTROPHILS # (AUTO) 8.2 (2.1-6.9); PLATELET COUNT 361 x10e3/uL (140-360); RED BLOOD COUNT 3.02 x10e6/uL (3.6-5.1); RED CELL DISTRIBUTION WIDTH 14.2 % (11.7-14.4)
[2017-10-23] MEDS: IRON-VITAMIN-MINERAL CAPSULE PO SCH (09:00)
[2017-10-23 09:11] LABS: ALANINE AMINOTRANSFERASE 52 IU/L (0-55); ALBUMIN 2.9 g/dL (3.5-5.0); ALKALINE PHOSPHATASE 90 IU/L (40-150); ANION GAP 8.3 mmol/L (8-16); BLOOD UREA NITROGEN 6 mg/dL (7-26); BUN/CREATININE RATIO 9 (6-25); CARBON DIOXIDE 26 mmol/L (22-29); CHLORIDE 106 mmol/L (98-107); CREATININE, SERUM 0.65 mg/dL (0.57-1.11); EST GLOMERULAR FILTRATION RATE > 60 ML/MIN (60-); GLUCOSE 179 mg/dL (74-118); POTASSIUM 3.3 mmol/L (3.5-5.1); SODIUM 137 mmol/L (136-145)
[2017-10-23] MEDS: SERTRALINE HCL 50 MG TAB PO SCH (10:47)
[2017-10-23] MEDS: GLIMEPIRIDE 2 MG TAB PO SCH ×2 (10:47→19:00)
[2017-10-23] MEDS: METFORMIN HCL 500 MG TAB PO SCH ×2 (10:47→19:00)
[2017-10-23] MEDS: TOLTERODINE TARTRATE 4 MG CAPCR PO SCH (10:47)
[2017-10-23] MEDS: PANTOPRAZOLE SOD 40 MG TABEC PO SCH (10:48)
[2017-10-23] MEDS: LISINOPRIL 20 MG TAB PO SCH (10:48)
[2017-10-23] MEDS: SODIUM CHLORIDE 0.9% 1000ML 1,000 ML IV SCH (10:48)
[2017-10-23] MEDS: INSULIN LISPRO 100 UNIT/1 ML 3ML VIAL SQ SCH ×4 (10:50→21:00)
--- NOTE | 2017-10-23 11:03 | Diagnostic Imaging Report ---
EXAMINATION: CHEST 2 VIEWS INDICATION: \S\PNUEMONIA COMPARISON: Chest x-ray 10/22/2017 FINDINGS: PA and lateral views TUBES and LINES: None. LUNGS: Lungs are well inflated. Unchanged bilateral multifocal pneumonia, right worse than left. PLEURA: No pleural effusion or pneumothorax. HEART AND MEDIASTINUM: The cardiomediastinal silhouette is unremarkable. There are atherosclerotic calcifications within the aorta. BONES AND SOFT TISSUES: No acute osseous lesion. Soft tissues are unremarkable. UPPER ABDOMEN: No free air under the diaphragm. IMPRESSION: Unchanged bilateral multifocal pneumonia, right worse than left. Signed by: Dr. Jose Geiger M.D. on 10/23/2017 10:59 AM
[2017-10-23 12:00] VITALS: BP 137/73
[2017-10-23] MEDS ORDERED: POTASSIUM CHLORIDE 10 MEQ TABCR PO SCH (14:30)
[2017-10-23] MEDS ORDERED: ACETAMINOPHEN 325 MG TAB PO PRN (14:30)
[2017-10-23 16:00] VITALS: BP 160/81
[2017-10-23] MEDS: BUDESONIDE 0.5MG/2 ML NEB INH SCH ×2 (16:00→19:10)
[2017-10-23] MEDS ORDERED: FUROSEMIDE INJ 10 MG/ML 2 ML VIAL IV SCH (16:15)
[2017-10-23] MEDS ORDERED: ACETYLCYSTEINE 20% INHAL SOLN 30 ML VIAL INH SCH (16:30)
[2017-10-23] MEDS: NICOTINE 7 MG PATCH TOP SCH (19:00)
[2017-10-23] MEDS: CEFTRIAXONE SOD 1 GM VIAL IV SCH (19:00)
[2017-10-23 20:00] VITALS: BP 169/74
[2017-10-23] MEDS: AZITHROMYCIN 500MG/NS 250 ML 250 ML IV SCH (21:30)
[2017-10-23] MEDS: ATORVASTATIN 10 MG TAB PO SCH (21:30)
[2017-10-23] MEDS: TRAZODONE HCL 50 MG TAB PO SCH (21:30)
[2017-10-24] VITALS: BP 180/74
[2017-10-24] MEDS: ALBUTEROL/IPRATROPIUM 3 ML NEB NEB SCH ×6 (03:25→23:02)
[2017-10-24 04:00] VITALS: BP 155/73
[2017-10-24] MEDS: CEFTRIAXONE SOD 1 GM VIAL IV SCH ×2 (05:40→18:28)
[2017-10-24] MEDS: BUDESONIDE 0.5MG/2 ML NEB INH SCH ×2 (07:00→19:22)
[2017-10-24] MEDS: PANTOPRAZOLE SOD 40 MG TABEC PO SCH (09:28)
[2017-10-24] MEDS: GLIMEPIRIDE 2 MG TAB PO SCH ×2 (09:28→18:28)
[2017-10-24] MEDS: INSULIN LISPRO 100 UNIT/1 ML 3ML VIAL SQ SCH ×4 (09:29→21:00)
[2017-10-24] MEDS: SERTRALINE HCL 50 MG TAB PO SCH (09:29)
[2017-10-24] MEDS: TOLTERODINE TARTRATE 4 MG CAPCR PO SCH (09:29)
[2017-10-24] MEDS: LISINOPRIL 20 MG TAB PO SCH (09:29)
[2017-10-24] MEDS: METFORMIN HCL 500 MG TAB PO SCH ×2 (09:29→18:28)
[2017-10-24] MEDS: IRON-VITAMIN-MINERAL CAPSULE PO SCH (09:29)
[2017-10-24] MEDS ORDERED: FUROSEMIDE INJ 10 MG/ML 2 ML VIAL IV SCH (10:00)
[2017-10-24 10:41] LABS: ANION GAP 13.5 mmol/L (8-16); BLOOD UREA NITROGEN 5 mg/dL (7-26); BUN/CREATININE RATIO 7 (6-25); CALCIUM 9.3 mg/dL (8.4-10.2); CARBON DIOXIDE 26 mmol/L (22-29); CHLORIDE 107 mmol/L (98-107); CREATININE, SERUM 0.71 mg/dL (0.57-1.11); EST GLOMERULAR FILTRATION RATE > 60 ML/MIN (60-); GLUCOSE 291 mg/dL (74-118); POTASSIUM 3.5 mmol/L (3.5-5.1); SODIUM 143 mmol/L (136-145)
--- NOTE | 2017-10-24 11:42 | Diagnostic Imaging Report ---
EXAMINATION: CHEST 2 VIEWS INDICATION: \S\SOB \S\[id number] \S\1020 COMPARISON: 10/23/2017 FINDINGS: PA and lateral views TUBES and LINES: None. LUNGS: Lungs are well inflated. Lower lobe predominant airspace opacities. Special PLEURA: No pneumothorax. Small bilateral pleural effusions. HEART AND MEDIASTINUM: The cardiac silhouette is enlarged. BONES AND SOFT TISSUES: No acute osseous lesion. Soft tissues are unremarkable. UPPER ABDOMEN: No free air under the diaphragm. IMPRESSION: Lower lobe predominant airspace opacities, representing edema and/or pneumonia. Edema is favored, considering history. Small bilateral pleural effusions. Signed by: Dr. Home Ferrell MD on 10/24/2017 11:38 AM
[2017-10-24 12:00] VITALS: BP 147/75
[2017-10-24 16:00] VITALS: BP 157/69
[2017-10-24] MEDS: NICOTINE 7 MG PATCH TOP SCH (18:28)
[2017-10-24 20:00] VITALS: BP 158/72
[2017-10-24] MEDS ORDERED: POTASSIUM CHLORIDE 10 MEQ TABCR PO ONE (20:00)
[2017-10-24] MEDS: ATORVASTATIN 10 MG TAB PO SCH (21:22)
[2017-10-24] MEDS: TRAZODONE HCL 50 MG TAB PO SCH (21:22)
[2017-10-25] VITALS: BP 112/57
[2017-10-25] MEDS: ALBUTEROL/IPRATROPIUM 3 ML NEB NEB SCH ×3 (03:15→10:00)
[2017-10-25] MEDS: AZITHROMYCIN 500MG/NS 250 ML 250 ML IV SCH (03:44)
[2017-10-25 04:00] VITALS: BP 135/64
[2017-10-25] MEDS: CEFTRIAXONE SOD 1 GM VIAL IV SCH (04:55)
[2017-10-25] MEDS: BUDESONIDE 0.5MG/2 ML NEB INH SCH (07:00)
[2017-10-25 07:05] LABS: ALANINE AMINOTRANSFERASE 31 IU/L (0-55); ALBUMIN 2.8 g/dL (3.5-5.0); ALKALINE PHOSPHATASE 97 IU/L (40-150); ANION GAP 13.3 mmol/L (8-16); BLOOD UREA NITROGEN 5 mg/dL (7-26); BUN/CREATININE RATIO 8 (6-25); CALCIUM 8.9 mg/dL (8.4-10.2); CARBON DIOXIDE 30 mmol/L (22-29); CHLORIDE 104 mmol/L (98-107); CREATININE, SERUM 0.64 mg/dL (0.57-1.11); EST GLOMERULAR FILTRATION RATE > 60 ML/MIN (60-); GLUCOSE 153 mg/dL (74-118); POTASSIUM 3.3 mmol/L (3.5-5.1); SODIUM 144 mmol/L (136-145)
[2017-10-25] MEDS: INSULIN LISPRO 100 UNIT/1 ML 3ML VIAL SQ SCH ×2 (07:30→12:45)
[2017-10-25 08:00] VITALS: BP 153/78
[2017-10-25 08:53] VITALS: BP 153/78
[2017-10-25] MEDS: LISINOPRIL 20 MG TAB PO SCH (08:56)
[2017-10-25] MEDS: SERTRALINE HCL 50 MG TAB PO SCH (08:56)
[2017-10-25] MEDS: GLIMEPIRIDE 2 MG TAB PO SCH (08:56)
[2017-10-25] MEDS: METFORMIN HCL 500 MG TAB PO SCH (08:56)
[2017-10-25] MEDS: TOLTERODINE TARTRATE 4 MG CAPCR PO SCH (08:56)
[2017-10-25] MEDS: PANTOPRAZOLE SOD 40 MG TABEC PO SCH (08:56)
[2017-10-25] MEDS ORDERED: POTASSIUM CHLORIDE 10 MEQ TABCR PO NR (09:45)
[2017-10-25] MEDS: IRON-VITAMIN-MINERAL CAPSULE PO SCH (10:04)
[2017-10-25] MEDS ORDERED: CEFTRIAXONE500 MG PO (10:52)
[2017-10-25] MEDS ORDERED: AZITHROMYCIN250 MG PO (10:52)
[2017-10-25] MEDS ORDERED: SYMBACORT (10:53)
[2017-10-25] MEDS ORDERED: LASIX20 MG PO (10:53)
--- NOTE | 2017-10-25 11:12 | Discharge Summary ---
The patient presented to the emergency room with complaint of hemoptysis, shortness of breath, cough and wheezing. ADMITTING IMPRESSION AND DIAGNOSES 1. Right lower lobe pneumonia with hemoptysis. 2. Chronic obstructive pulmonary disease. 3. Hypertension. 4. Diabetes mellitus. 5. Hyperlipidemia. HOSPITAL COURSE SUMMARY: The patient was admitted with the above diagnosis. The patient had pulmonary and GI consultations done. The patient was treated with IV antibiotics. The patient had a CT scan of the chest. The patient was found to have bilateral lower lobe pneumonia. The patient was given neb treatments and IV Rocephin and Zithromax. Pulmonary consultation was done by Dr. Coronado. The patient had bronchoscopy done, and lavage was sent. The patient had blood in the bronchial trees. CT scan had shown right middle lobe consolidation and a 1-cm right middle lobe nodule. During the hospital course, the patient developed some hypoxemia. The patient was given neb treatments and IV Lasix, and the patient improved. The patient had a V/Q scan done, which was low probability for PE. Cytology was sent, which was negative. Now, upon stabilization, the patient will be discharged home with nebulizer treatments, antibiotic, advice to stop smoking, Lasix, and Symbicort. YRN PARKS MD Job#: [id number]
[2017-10-25 12:00] VITALS: BP 155/86
== END 2017-10-25 13:30 | disposition home or self-care (01) | DRG 167 ==
LOC: ER 15:26 → MED/SURG2 19:56
PROVIDERS: ADMIT Internal Medicine; ATTEND Internal Medicine
PROC: 0B958ZX Drainage of Right Middle Lobe Bronchus, Via Natural or Artificial Opening Endoscopic, Diagnostic (ICD-10-PCS; 2017-10-19)
PROC: 0BBD8ZX Excision of Right Middle Lung Lobe, Via Natural or Artificial Opening Endoscopic, Diagnostic (ICD-10-PCS; principal; 2017-10-19 13:30)
DX: J15.9 Unspecified bacterial pneumonia (principal); R04.2 Hemoptysis; J96.10 Chronic respiratory failure, unspecified whether with hypoxia or hypercapnia; K74.60 Unspecified cirrhosis of liver; K76.6 Portal hypertension; K92.2 Gastrointestinal hemorrhage, unspecified; T17.990A Other foreign object in respiratory tract, part unspecified in causing asphyxiation, initial encounter; E11.9 Type 2 diabetes mellitus without complications; Z87.891 Personal history of nicotine dependence; I10 Essential (primary) hypertension; F17.210 Nicotine dependence, cigarettes, uncomplicated; E78.5 Hyperlipidemia, unspecified; Z91.013 Allergy to seafood; J44.9 Chronic obstructive pulmonary disease, unspecified; Z80.1 Family history of malignant neoplasm of trachea, bronchus and lung; D64.9 Anemia, unspecified; K75.81 Nonalcoholic steatohepatitis (NASH); R91.1 Solitary pulmonary nodule; E87.6 Hypokalemia; R09.02 Hypoxemia
CPT/HCPCS: 36415; 71045; 71046; 71250; 76000; 76700; 78582; 80048; 80053; 80162; 81001; 82550; 82553; 82728; 82948; 83036; 83540; 83690; 83880; 84443; 84466; 84484; 85025; 85045; 85379; 85610; 85730; 86021; 87040; 87070; 87102; 87116; 87205; 87206; 87335; 87400; 88112; 88305; 93005; 94640; 99284; A9540; A9558; J0171; J0456; J0696; J1200; J1756; J2001; J2250; J2930; J7030

== ENCOUNTER → 2017-12-08 | Outpatient (CLI) | payer OTHER ==
[~2017-12-08] MED LIST: AZITHROMYCIN250 MG PO; CEFTRIAXONE500 MG PO; DETROL LA4 MG PO; GLIMEPIRIDE2 MG PO; LASIX20 MG PO; LIPITOR20 MG; LISINOPRIL10 MG PO; METFORMIN HCL500 MG PO; SERTRALINE HCL50 MG PO; SYMBACORT; TRAZODONE HCL50 MG PO; VENTOLIN HFA18 GM
--- NOTE | 2017-12-08 17:48 | Diagnostic Imaging Report ---
PROCEDURE: X-RAY CHEST, TWO VIEWS COMPARISON: Patients [facility], CT, CT CHEST WO, 10/17/2017, 14:09. Patients [facility], DX, CHEST 2 VIEWS, 10/24/2017, 10:36. INDICATIONS: PNEUMONIA FINDINGS: LUNGS: Right middle lobe consolidation has organized into a well-defined opacity. This appears similar in size if not larger. No new findings in the left lung. PLEURA: No effusions or pneumothorax. HEART \T\ MEDIASTINUM: The heart is within normal size-limits. Pulmonary vascular markings are normal. BONES \T\ SOFT TISSUES: No focal osseous lesions. Soft tissues are unremarkable.. CONCLUSION: Right middle lobe consolidation could be result of pneumonia or mass. Recommend further characterization with CT of the chest to exclude bronchial occlusion. Dictated by: Monse Min M.D. on 12/08/2017 at 17:49 Electronically approved by: Monse Min M.D. on 12/08/2017 at 17:49
== END ==
LOC: RAD 16:36
PROVIDERS: ATTEND Internal Medicine Pulmonary Disease
DX: Z09 Encounter for follow-up examination after completed treatment for conditions other than malignant neoplasm (principal); J18.9 Pneumonia, unspecified organism
CPT/HCPCS: 71046

== ENCOUNTER → 2017-12-10 | Outpatient (CLI) | payer OTHER ==
--- NOTE | 2017-12-10 18:31 | Diagnostic Imaging Report ---
PROCEDURE: CT CHEST WITHOUT CONTRAST CT scan of the chest WITHOUT intravenous contrast, using standard protocol. TECHNIQUE: The chest was scanned utilizing a multidetector helical scanner from the apex to the level of the adrenal glands. No IV contrast was administered. Coronal and sagittal multiplanar reformations were obtained. DLP: 604.85 mGy-cm COMPARISON: Chest CT 10/17/2017 INDICATIONS: PNEUMONIA FINDINGS: Lines/tubes: None. Lungs and Airways: Persistent consolidation in the right middle lobe. Worsening right middle lobe ground glass opacities, and new right lower lobe and lingular ground glass opacities. Minimal biapical emphysematous changes. Pleura: The pleural spaces are clear. Heart and mediastinum: Left thyroid lobe 1.2 cm nodule, stable. Subcarinal slightly enlarged 1.1 cm node (series 2 image 27). No additional significant mediastinal, hilar or axillary lymphadenopathy is seen. The heart and pericardium are within normal limits. Soft tissues: Normal. Abdomen: Limited views of the upper abdomen show no abnormality within the visualized liver, spleen, pancreas, or kidneys. Right adrenal approximately 1.6 cm nodule measures less than 10 Hounsfield units, compatible with an adenoma, stable. A partially visualized possible second 1.1 x 1.8 cm right adrenal nodule is indeterminate. The previous scan did not include this portion of the adrenal gland. No left adrenal nodules. Bones: The visualized bony thorax is within normal limits for age. IMPRESSION: Persistence of a right middle lobe consolidation from 10/17/2017 which is concerning. Given new lingular and right lower lobe ground glass opacities, the consolidation may still reflect a persistent pneumonia. An underlying neoplasm would be the diagnosis to exclude. Consider pulmonary consolidation for possible bronchoscopy. Indeterminate partially visualized right adrenal nodule. Recommend CT abdomen without and with contrast (adrenal mass protocol) for further evaluation. Dictated by: Eugenio Kwan M.D. on 12/10/2017 at 18:32 Electronically approved by: Eugenio Kwan M.D. on 12/10/2017 at 18:32
== END ==
LOC: CT 17:00
PROVIDERS: ATTEND Internal Medicine Pulmonary Disease
DX: J18.9 Pneumonia, unspecified organism (principal)
CPT/HCPCS: 71250

== ENCOUNTER → 2017-12-22 | Outpatient (CLI) | payer OTHER ==
[~2017-12-22] MED LIST changes: +FENTANYL CITRATE/PF 100MCG/2 ML INJ ONE; +MIDAZOLAM HCL 2 MG/2 ML VIAL ONE
[2017-12-22 08:48] LABS: INR 1.06
[2017-12-22 08:49] LABS: PARTIAL THROMBOPLASTIN TIME 26.6 seconds (23.8-35.5)
--- NOTE | 2017-12-22 11:39 | Diagnostic Imaging Report ---
CT-guided Lung Biopsy 12/22/2017 Pre-Procedure Diagnosis: Chronic right middle lobe pneumonia/mass Post-procedure Diagnosis:Right middle lobe mass [employer] Science Teacher: Meloyd Gibbons Fermentation Engineer: None Sedation: Moderate sedation was provided with intravenous fentanyl and Versed. Heart rate, rhythm and oxygen saturation were monitored and real-time by a dedicated interventional radiology nurse under my direct supervision. Blood pressure was monitored in 5 minute increments. 1% lidocaine was used for local anesthesia. Total sedation time: 45 minutes. Radiation Dose:1730.97 mGy-cm (DLP) Estimate blood loss: <5 mL Blood administered: None Complications: None Implants/Grafts: None Specimen: 18-gauge 2 cm core biopsy x5 for pathology; 18-gauge 2 cm core biopsy x2 for lab; 22-gauge FNA needle biopsy for cytology. Procedure: Informed consent was obtained and the patient placed supine. A timeout was performed, followed by resource specialist CT within the region of interest. The right chest was prepped and draped in standard sterile fashion. Using intermittent CT guidance, a 19-gauge 12 cm guide needle was advanced in the right middle lobe mass. Appropriate positioning was confirmed, and 3 22-gauge FNA needle biopsies were obtained and is submitted for immediate pathology review. Subsequently, with intermittent CT evaluation, 7 18-gauge 2 cm core biopsies were obtained for pathology and laboratory evaluation. Samples were submitted in formalin and saline as described above. At the end of the procedure the needle was removed and a sterile dressing applied. Findings: 5 x 7 cm right middle lobe mass. No evidence of postprocedural pneumothorax. Impression: Successful right middle lobe biopsy using CT guidance under moderate sedation. Plan: Serial postoperative chest x-rays to evaluate for delayed pneumothorax. This report was generated with voice-recognition technology. Errors in pt escort can occur. Please interpret accordingly and contact a radiologist if there are any questions regarding the report. Signed by: Dr. Gigi Gibbons M.D. on 12/22/2017 11:36 AM
--- NOTE | 2017-12-22 11:39 | Diagnostic Imaging Report ---
CT-guided Lung Biopsy 12/22/2017 Pre-Procedure Diagnosis: Chronic right middle lobe pneumonia/mass Post-procedure Diagnosis:Right middle lobe mass Hand Molder And Caster: Melody Gibbons Automobile Upholsterer: None Sedation: Moderate sedation was provided with intravenous fentanyl and Versed. Heart rate, rhythm and oxygen saturation were monitored and real-time by a dedicated interventional radiology nurse under my direct supervision. Blood pressure was monitored in 5 minute increments. 1% lidocaine was used for local anesthesia. Total sedation time: 45 minutes. Radiation Dose:1730.97 mGy-cm (DLP) Estimate blood loss: <5 mL Blood administered: None Complications: None Implants/Grafts: None Specimen: 18-gauge 2 cm core biopsy x5 for pathology; 18-gauge 2 cm core biopsy x2 for lab; 22-gauge FNA needle biopsy for cytology. Procedure: Informed consent was obtained and the patient placed supine. A timeout was performed, followed by refinery operator polymerization plant CT within the region of interest. The right chest was prepped and draped in standard sterile fashion. Using intermittent CT guidance, a 19-gauge 12 cm guide needle was advanced in the right middle lobe mass. Appropriate positioning was confirmed, and 3 22-gauge FNA needle biopsies were obtained and is submitted for immediate pathology review. Subsequently, with intermittent CT evaluation, 7 18-gauge 2 cm core biopsies were obtained for pathology and laboratory evaluation. Samples were submitted in formalin and saline as described above. At the end of the procedure the needle was removed and a sterile dressing applied. Findings: 5 x 7 cm right middle lobe mass. No evidence of postprocedural pneumothorax. Impression: Successful right middle lobe biopsy using CT guidance under moderate sedation. Plan: Serial postoperative chest x-rays to evaluate for delayed pneumothorax. This report was generated with voice-recognition technology. Errors in ui ux engineer can occur. Please interpret accordingly and contact a radiologist if there are any questions regarding the report. Signed by: Dr. Gigi Gibbons M.D. on 12/22/2017 11:36 AM
--- NOTE | 2017-12-22 11:58 | Diagnostic Imaging Report ---
CORRECTION Corrected on: 12/22/2017; Dictated by: Gigi Gibbons M.D. on 12/22/2017 at 14:07 Electronically approved by: Gigi Gibbons M.D. on 12/22/2017 at 14:07 PROCEDURE:CHEST SINGLE (PORTABLE) TECHNIQUE:Portable AP chest INDICATION:Right middle lobe biopsy COMPARISON:[facility], , CHEST 2 VIEWS, 12/08/2017, 17:11. FINDINGS: Stable large right middle lobe mass. No conspicuous pneumothorax. Clear left lung. Stable cardiomediastinal silhouette, with normal heart size for technique. Intact skeleton. CONCLUSION: Known right middle lobe mass. No acute abnormality. Dictated by: Gigi Gibbons M.D. on 12/22/2017 at 12:00 Electronically approved by: Gigi Gibbons M.D. on 12/22/2017 at 12:00
--- NOTE | 2017-12-22 13:45 | Diagnostic Imaging Report ---
PROCEDURE: A single AP view of the chest. COMPARISON: Chest x-ray 12/08/2017. CT chest 12/10/2017. INDICATIONS: POST LUNG BIOPSY FINDINGS: Lines/tubes: None. Lungs: Left lung base atelectasis. Ill-defined ground glass opacities in the right middle lobe and right lower lobe with dense consolidation in the right middle lobe. Compared to 12/08/2017, there is increased density in this region. Pleura: There is no pleural effusion or pneumothorax. Heart and mediastinum: The heart and the mediastinum are unremarkable. Bones: No acute bony abnormality. IMPRESSION: Slight increase in airspace opacities in the right lung base, likely postoperative hemorrhage/fluid within the lung parenchyma. No pneumothorax. Dictated by: Jose Geiger M.D. on 12/22/2017 at 13:47 Electronically approved by: Jose Geiger M.D. on 12/22/2017 at 13:47
== END ==
LOC: CT 08:09
PROVIDERS: ATTEND Internal Medicine Pulmonary Disease
DX: R91.8 Other nonspecific abnormal finding of lung field (principal)
CPT/HCPCS: 32405; 36415; 71045 ×2; 77012; 85049; 85610; 85730; 87070; 87102; 87116; 87205; 87206 ×2; 88112; 88172; 88173; 88305; 88342; J2250

== ENCOUNTER → 2018-05-10 | Outpatient (CLI) | payer OTHER ==
[~2018-05-10] MED LIST changes: -FENTANYL CITRATE/PF 100MCG/2 ML INJ ONE; +IOPAMIDOL 370 MG/ML 200 ML INFUS..BTL INJ ONE; -MIDAZOLAM HCL 2 MG/2 ML VIAL ONE; +SODIUM CHLORIDE 0.9% 50ML 50 ML ONE
--- NOTE | 2018-05-10 19:29 | Diagnostic Imaging Report ---
EXAM: CT Chest WITH contrast 05/10/2018 4:43 PM INDICATION: \S\MALIGNANT NEOPLASM OF MIDDLE LOBE,B COMPARISON: CT chest biopsy 12/22/2017. CT chest 10/17/2017. TECHNIQUE: Chest was scanned utilizing a multidetector helical scanner from the lung apex through the level of the adrenal glands without administration of IV contrast. Coronal and sagittal reformations were obtained. Routine protocol was performed. IV CONTRAST: 100 mL of Isovue 370 COMPLICATIONS: None RADIATION DOSE: Total DLP: 652.2 mGy*cm Estimated effective dose: (DLP x 0.014 x size factor) mSv CTDIvol has been reviewed. It is below the limits set by the Radiation Protocol Committee (RPC). FINDINGS: LINES/ TUBES: Right-sided portacatheter with tip in the right atrium. LUNGS AND AIRWAYS: Improvement in the right middle lobe consolidation with air bronchograms measuring 4.8 cm (series 4, image 35) and on sagittal images 1.9 x 4.8 cm (series 500 image 33). Associated mild groundglass opacity in the right middle lobe, which has improved. Previous 10 mm groundglass nodules in the right middle lobe has resolved. Improving lingular atelectasis. Previous mild ground glass opacity in the left upper lobe has resolved. Airways are normal. PLEURA: The pleural spaces are clear. HEART AND MEDIASTINUM: The thyroid gland is normal. No mediastinal, hilar or axillary lymphadenopathy. The heart is normal in size. There is no pericardial effusion. Focal calcification of the mid LAD. UPPER ABDOMEN: Diffuse hepatic steatosis. Nodular thickening of the right adrenal gland. BONES: The visualized bony thorax is within normal limits. SOFT TISSUES: Unremarkable. IMPRESSION: Improving right middle lobe consolidation. However, the consolidation remains present. Signed by: Dr. Jose Geiger M.D. on 05/10/2018 7:26 PM
== END ==
LOC: CT 16:25
PROVIDERS: ATTEND Internal Medicine Hematology & Oncology
DX: C34.2 Malignant neoplasm of middle lobe, bronchus or lung (principal)
CPT/HCPCS: 71260; Q9967

== ENCOUNTER → 2018-07-22 | Outpatient (CLI) | payer BC ==
[2018-07-22 15:15] LABS: BLOOD UREA NITROGEN 7 mg/dL (7-26); BUN/CREATININE RATIO 11 (6-25); CREATININE, SERUM 0.64 mg/dL (0.57-1.11); EST GLOMERULAR FILTRATION RATE > 60 ML/MIN (60-)
--- NOTE | 2018-07-22 17:13 | Diagnostic Imaging Report ---
EXAM: CT Chest WITH contrast 07/22/2018 2:20 PM INDICATION: ^[id number] ^[id number] ^F/U LUNG CA COMPARISON: CT chest 05/10/2018 TECHNIQUE: Chest was scanned utilizing a multidetector helical scanner from the lung apex through the level of the adrenal glands after administration of IV contrast. Coronal and sagittal reformations were obtained. IV CONTRAST: 100 mL of Isovue-370 ORAL CONTRAST: None COMPLICATIONS: None RADIATION DOSE: Total DLP: 541.1 mGy*cm Estimated effective dose: (DLP x 0.015 x size factor) mSv CTDIvol has been reviewed. It is below the limits set by the Radiation Protocol Committee (RPC). FINDINGS: LINES/ TUBES: Right-sided portacatheter with tip in the right atrium. LUNGS AND AIRWAYS: Interval decrease in size of the right middle lobe consolidation measuring now 2 x 2.4 cm compared to 4.8 x 2.8 cm on 05/10/2018. No new consolidations or suspicious pulmonary nodules. Airways are normal. PLEURA: The pleural spaces are clear. HEART AND MEDIASTINUM: The thyroid gland is normal. No mediastinal, hilar or axillary lymphadenopathy. The heart is normal in size. There is no pericardial effusion. Coronary artery calcifications. The thoracic aorta and pulmonary arteries are unremarkable. UPPER ABDOMEN: Previously noted adrenal gland nodular thickening is partially included on this exam. BONES: The visualized bony thorax is within normal limits. SOFT TISSUES: Unremarkable. IMPRESSION: Interval significant decrease in size of the right middle lobe consolidation now measuring up to 2.4 cm compared to 4.8 cm on prior exam. No new pulmonary nodules or masses. Signed by: Dr. Diana Camejo M.D. on 07/22/2018 5:10 PM
== END ==
LOC: CT 14:10
PROVIDERS: ATTEND Internal Medicine Hematology & Oncology
DX: C34.2 Malignant neoplasm of middle lobe, bronchus or lung (principal); C79.70 Secondary malignant neoplasm of unspecified adrenal gland; C77.2 Secondary and unspecified malignant neoplasm of intra-abdominal lymph nodes; E11.9 Type 2 diabetes mellitus without complications; I10 Essential (primary) hypertension; E78.5 Hyperlipidemia, unspecified; F32.9 Major depressive disorder, single episode, unspecified; F41.9 Anxiety disorder, unspecified
CPT/HCPCS: 36415; 71260; 82565; 84520; Q9967

== ENCOUNTER → 2019-10-21 | Day surgery (SDC) | payer BC, OTHER ==
[~2019-10-21] MED LIST changes: +CIPRO500 MG PO; +FENTANYL CITRATE/PF 100MCG/2 ML INJ ONE; +FLAGYL500 MG PO; +FOLIC ACID PO; +GLUCAGON FOR INJ 1 MG VIAL ONE; +HYOSCYAMINE 0.125 MG TAB ONE; -IOPAMIDOL 370 MG/ML 200 ML INFUS..BTL INJ ONE; +KEYTRUDA100 MG/4 M IV; +LANTUS 3ML100 UNITS/ SC; +LIDOCAINE HCL 2% LOCAL INJ 5 ML SDV VIAL INJ ONE; +LYRICA75 MG PO; +MIDAZOLAM HCL 2 MG/2 ML VIAL ONE; +PANTOPRAZOLE SO40 MG PO; +PROPOFOL IV EMULSION 10 MG/ML 20 ML VIAL ONE; +PROPOFOL IV EMULSION 10 MG/ML 50 ML VIAL ONE; -SODIUM CHLORIDE 0.9% 50ML 50 ML ONE; +TRELEGY ELLIPT1 EACH IH; +TYLENOL WITH C1 EACH PO; +ZOFRAN4 MG PO
[2019-10-21 09:25] VITALS: BP 104/68
--- NOTE | 2019-10-21 09:56 | Operative Report ---
DATE OF PROCEDURE: 10/21/2019 SURGEON: Jabier Odom MD PROCEDURE: Colonoscopy, polypectomy and biopsies. INDICATIONS FOR COLONOSCOPY: History of ulcerated left colon and rectal polyps, suboptimal prep on previous colonoscopy. MEDICATIONS: The patient was done under MAC, please see anesthesiologist's note. PROCEDURE IN DETAIL: With the patient in left lateral decubitus position, flexible fiberoptic Olympus colonoscope was inserted into the rectum with ease and advanced all the way to the cecum. Mucosa overlying the cecum appeared to be within normal limits. An approximately 1 cm submucosal lesion with yellowish overview suspicious for lipoma was biopsied. Approximately 6 mm polyp sessile transverse colon was removed per snare electrocautery. The descending colon grossly appeared to be within normal limits. Previously described ulcerations are totally healed. A residual large ulcer was noted in the proximal sigmoid colon and that was biopsied. Three polyps were removed per the hot biopsy forceps in the sigmoid colon and three polyps were removed per hot snare and the sigmoid colon. The scope was then retroflexed into the distal rectum and small internal hemorrhoids were noted none of which was actively bleeding. The scope was then straightened out, it was subsequently withdrawn, patient tolerated the procedure well. IMPRESSION: 1. Rule out lipoma, ascending colon. 2. Transverse colon polyp approximately 6 mm sessile, removed per snare electrocautery. 3. Previously described ulcerated descending and sigmoid colon other than for a residual sigmoid ulcer are totally healed. 4. Sigmoid polyps x3 hot biopsied. 5. Rectal polyps x3, removed per snare electrocautery. 6. Internal hemorrhoids none actively bleeding. PLAN: Follow up histology. Initiate high-fiber, low-fat diet. Initiate high-fiber supplement. The patient might benefit from a followup colonoscopy in 3 years. MD ROMAIN Seymour/SABIHA /[id number] cc: Olegario Raymond MD
== END | disposition home or self-care (01) ==
LOC: OR 06:05
PROVIDERS: ATTEND Internal Medicine Gastroenterology
DX: D12.3 Benign neoplasm of transverse colon (principal); K63.5 Polyp of colon; K62.1 Rectal polyp; K63.3 Ulcer of intestine; K64.8 Other hemorrhoids; Z91.013 Allergy to seafood; Z01.810 Encounter for preprocedural cardiovascular examination; E11.9 Type 2 diabetes mellitus without complications; Z85.118 Personal history of other malignant neoplasm of bronchus and lung; I10 Essential (primary) hypertension; J44.9 Chronic obstructive pulmonary disease, unspecified; E78.00 Pure hypercholesterolemia, unspecified; Z86.19 Personal history of other infectious and parasitic diseases; F32.9 Major depressive disorder, single episode, unspecified
CPT/HCPCS: 36415; 45378; 45380; 45384; 45385; 82948; 93005; J1610; J2001; J2250; J3010

== ENCOUNTER → 2021-05-27 | Outpatient (CLI) | payer MEDICARE, BC ==
[~2021-05-27] MED LIST changes: -FENTANYL CITRATE/PF 100MCG/2 ML INJ ONE; -GLUCAGON FOR INJ 1 MG VIAL ONE; -HYOSCYAMINE 0.125 MG TAB ONE; -LIDOCAINE HCL 2% LOCAL INJ 5 ML SDV VIAL INJ ONE; -MIDAZOLAM HCL 2 MG/2 ML VIAL ONE; -PROPOFOL IV EMULSION 10 MG/ML 20 ML VIAL ONE; -PROPOFOL IV EMULSION 10 MG/ML 50 ML VIAL ONE
== END ==
LOC: MAMMO 16:06
PROVIDERS: ATTEND Internal Medicine
DX: Z12.31 Encounter for screening mammogram for malignant neoplasm of breast (principal)
CPT/HCPCS: 77067

== ENCOUNTER → 2022-04-02 | Outpatient (CLI) | payer MEDICARE | LOC: RAD 07:07 | PROVIDERS: ATTEND Internal Medicine | DX: S73.101A Unspecified sprain of right hip, initial encounter (principal); M47.816 Spondylosis without myelopathy or radiculopathy, lumbar region | CPT/HCPCS: 72110 ==

== ENCOUNTER → 2022-09-21 | Outpatient (CLI) | payer MEDICARE | LOC: MAMMO 07:56 | PROVIDERS: ATTEND Internal Medicine | DX: Z12.31 Encounter for screening mammogram for malignant neoplasm of breast (principal) | CPT/HCPCS: 77067 ==

== ENCOUNTER 2024-07-11 19:44 | Emergency (ER) | payer MEDICARE ==
[~2024-07-11] VITALS: Ht 157.5 cm; Wt 81.6 kg
[2024-07-11 19:50] VITALS: PULSE 78; RESP 16; TEMP 98; O2SAT 97
[2024-07-11 20:04] LABS: BASOPHILS # (AUTO) 0.1 (0.0-0.1); EOSINOPHILS # (AUTO) 0.4 (0.0-0.4); EOSINOPHILS % 3.4 % (0.0-6.0); HEMATOCRIT 32.1 % (34.2-44.1); HEMOGLOBIN 9.7 g/dL (12.0-16.0); LYMPHOCYTES # (AUTO) 2.8 (1.0-3.2); LYMPHOCYTES % 22.7 % (18.0-39.1); MEAN CORPUSCULAR HEMOGLOBIN 24.6 pg (28-32); MEAN CORPUSCULAR HGB CONC 30.2 g/dL (31-35); MEAN CORPUSCULAR VOLUME 81.5 fL (81-99); MONOCYTES # (AUTO) 1.3 (0.2-0.8); MONOCYTES % 10.3 % (4.4-11.3); NEUTROPHILS # (AUTO) 7.8 (2.1-6.9); NEUTROPHILS % 62.3 % (38.7-80.0); PLATELET COUNT 330 x10e3/uL (140-360); RED BLOOD COUNT 3.94 x10e6/uL (3.6-5.1); RED CELL DISTRIBUTION WIDTH 15.4 % (11.7-14.4); WHITE BLOOD COUNT 12.53 x10e3/uL (4.8-10.8)
[2024-07-11 20:11] LABS: ABG HCO3 23 mmol/L (22-26); ABG PCO2 38 mmHg (35-45); ABG PO2 105 mmHg (80-105); ABG TCO2 24
[2024-07-11] MEDS: SODIUM CHLORIDE 0.9% 1000ML 2,000 ML IV STA (20:21)
[2024-07-11] MEDS ORDERED: SODIUM CHLORIDE 0.9% 1000ML 1,000 ML ONE (20:23)
[2024-07-11 20:26] LABS: ALANINE AMINOTRANSFERASE 20 IU/L (0-55); ALBUMIN 3.5 g/dL (3.5-5.0); ALBUMIN/GLOBULIN RATIO 1.2 (0.8-2.0); ALKALINE PHOSPHATASE 127 IU/L (40-150); ANION GAP 14.8 mmol/L (8-16); BILIRUBIN,TOTAL 0.3 mg/dL (0.2-1.2); BLOOD UREA NITROGEN 10 mg/dL (7-26); BUN/CREATININE RATIO 11 (6-25); CALCIUM 9.5 mg/dL (8.4-10.2); CARBON DIOXIDE 23 mmol/L (22-29); CHLORIDE 96 mmol/L (98-107); CREATINE KINASE 121 IU/L (29-168); CREATININE, SERUM 0.93 mg/dL (0.57-1.11); EST GLOMERULAR FILTRATION RATE 71 ML/MIN (>=60); POTASSIUM 3.8 mmol/L (3.5-5.1); SODIUM 130 mmol/L (136-145); TOTAL PROTEIN 6.5 g/dL (6.5-8.1)
[2024-07-11 20:27] LABS: GLUCOSE 602 mg/dL (74-118)
[2024-07-11 20:36] LABS: TROPONIN I < 0.001 ng/mL (0-0.300)
[2024-07-11 22:07] LABS: BILIRUBIN,URINE NEGATIVE (NEGATIVE); CLARITY,URINE CLEAR (CLEAR); COLOR,URINE YELLOW (YELLOW); GLUCOSE, URINE 500 (NEGATIVE); KETONES,URINE NEGATIVE (NEGATIVE); LEUKOCYTE ESTERASE ,URINE NEGATIVE (NEGATIVE); NITRITE,URINE NEGATIVE (NEGATIVE); PH,URINE 7 (5 - 7); PROTEIN,URINE DIPSTICK NEGATIVE (NEGATIVE); URINE UROBILINOGEN 0.2 mg/dL (0.2 - 1)
[2024-07-11 22:18] LABS: BACTERIA,URINE MANY /HPF; EPITHELIAL CELLS,URINE MODERATE /LPF; RBC,URINE 0-5 /HPF (0-5); WBC,URINE (MAN) 0-5 /HPF (0-5)
[2024-07-11 23:06] LABS: ALBUMIN 3.3 g/dL (3.5-5.0); ALBUMIN/GLOBULIN RATIO 1.2 (0.8-2.0); ANION GAP 12.5 mmol/L (8-16); BILIRUBIN,TOTAL 0.2 mg/dL (0.2-1.2); CALCIUM 8.7 mg/dL (8.4-10.2); CREATININE, SERUM 0.78 mg/dL (0.57-1.11); POTASSIUM 3.5 mmol/L (3.5-5.1); TOTAL PROTEIN 6.1 g/dL (6.5-8.1)
[2024-07-12 07:58] LABS: ABG HCO3 23 mmol/L (22-26); ABG PCO2 38 mmHg (35-45); ABG PO2 105 mmHg (80-105); ABG TCO2 24
== END 2024-07-11 23:36 | disposition home or self-care (01) ==
LOC: ER 19:47
DX: R42 Dizziness and giddiness (principal); E11.65 Type 2 diabetes mellitus with hyperglycemia; I10 Essential (primary) hypertension; E78.5 Hyperlipidemia, unspecified; E78.00 Pure hypercholesterolemia, unspecified; E66.9 Obesity, unspecified; F41.9 Anxiety disorder, unspecified; F32.A Depression, unspecified; R53.81 Other malaise; Z85.118 Personal history of other malignant neoplasm of bronchus and lung
CPT/HCPCS: 36415; 36600; 71045; 80053; 81001; 82550; 82805; 82948; 83690; 83880; 84484; 85025; 93005; 99284; J7030

== ENCOUNTER 2024-10-23 15:50 | Emergency (ER) | payer MEDICARE ==
[~2024-10-23] VITALS: Ht 157.5 cm; Wt 81.6 kg
[2024-10-23] MEDS ORDERED: DEXAMETHASONE SOD PHOS 10 MG/1 ML VIAL IV ONE (16:15)
[2024-10-23 16:22] LABS: BASOPHILS % 0.2 % (0.0-1.0); EOSINOPHILS % 0.1 % (0.0-6.0); HEMATOCRIT 34.8 % (34.2-44.1); LYMPHOCYTES # (AUTO) 2.4 (1.0-3.2); LYMPHOCYTES % 15.7 % (18.0-39.1); MEAN CORPUSCULAR HEMOGLOBIN 22.7 pg (28-32); MEAN CORPUSCULAR HGB CONC 31.6 g/dL (31-35); MEAN CORPUSCULAR VOLUME 71.8 fL (81-99); MONOCYTES # (AUTO) 1.6 (0.2-0.8); MONOCYTES % 10.4 % (4.4-11.3); NEUTROPHILS # (AUTO) 11.4 (2.1-6.9); NEUTROPHILS % 73.2 % (38.7-80.0); PLATELET COUNT 324 x10e3/uL (140-360); RED BLOOD COUNT 4.85 x10e6/uL (3.6-5.1); RED CELL DISTRIBUTION WIDTH 21.2 % (11.7-14.4)
[2024-10-23 16:34] LABS: INR 0.91; PROTHROMBIN TIME 12.8 seconds (11.9-14.5)
[2024-10-23 16:35] LABS: PARTIAL THROMBOPLASTIN TIME 27.8 seconds (23.8-35.5)
[2024-10-23 16:42] LABS: CORONAVIRUS COVID-19 AG NEGATIVE (NEGATIVE); INFLUENZA B AG NEGATIVE (NEGATIVE)
[2024-10-23 16:43] LABS: INFLUENZA A AG POSITIVE (NEGATIVE)
[2024-10-23 16:45] LABS: ALBUMIN 3.6 g/dL (3.5-5.0); ALBUMIN/GLOBULIN RATIO 0.9 (0.8-2.0); ANION GAP 17.7 mmol/L (8-16); BILIRUBIN,TOTAL 0.4 mg/dL (0.2-1.2); CALCIUM 9.6 mg/dL (8.4-10.2); CREATININE, SERUM 0.74 mg/dL (0.57-1.11); POTASSIUM 3.7 mmol/L (3.5-5.1); TOTAL PROTEIN 7.6 g/dL (6.5-8.1)
[2024-10-23] MEDS: SODIUM CHLORIDE 0.9% 1000ML 1,500 ML IV ONE (16:51)
[2024-10-23 16:53] VITALS: PULSE 108; RESP 18; O2SAT 94
[2024-10-23 16:54] VITALS: PULSE 108; RESP 18
[2024-10-23] MEDS: ALBUTEROL/IPRATROPIUM 3 ML NEB NEB ONE (16:54)
[2024-10-23] MEDS ORDERED: DOXYCYCLINE HY100 MG PO (17:41)
[2024-10-23] MEDS ORDERED: VENTOLIN HFA18 GM INH (17:41)
[2024-10-23] MEDS ORDERED: XOFLUZA80 MG PO (17:41)
[2024-10-23] MEDS ORDERED: CEFDINIR300 MG PO (17:41)
[2024-10-23 18:15] VITALS: TEMP 98.6
[2024-10-23 19:05] VITALS: PULSE 98; RESP 18; O2SAT 95
== END 2024-10-23 19:07 | disposition home or self-care (01) ==
LOC: ER 16:00
DX: R05.9 Cough, unspecified (principal); J10.1 Influenza due to other identified influenza virus with other respiratory manifestations; J44.9 Chronic obstructive pulmonary disease, unspecified; I10 Essential (primary) hypertension; E11.65 Type 2 diabetes mellitus with hyperglycemia; E78.5 Hyperlipidemia, unspecified; E78.00 Pure hypercholesterolemia, unspecified; F41.9 Anxiety disorder, unspecified; F32.A Depression, unspecified; E66.9 Obesity, unspecified; Z11.52 Encounter for screening for COVID-19; R94.31 Abnormal electrocardiogram [ECG] [EKG]; Z85.118 Personal history of other malignant neoplasm of bronchus and lung
CPT/HCPCS: 36415; 71046; 80053; 83605; 85025; 85610; 85730; 87040; 87428; 93005; 94640; 94799; 99284; J1100; J7030

== ENCOUNTER → 2025-04-27 | Outpatient (REF) | payer MEDICARE ==
[~2025-04-27] MED LIST changes: +CEFDINIR300 MG PO; +DOXYCYCLINE HY100 MG PO; +VENTOLIN HFA18 GM INH; +XOFLUZA80 MG PO
== END ==
LOC: MAMMO 15:00
PROVIDERS: ATTEND Internal Medicine
DX: Z12.31 Encounter for screening mammogram for malignant neoplasm of breast (principal)
CPT/HCPCS: 77067